=== PATIENT | male | born 1995 | race Hispanic/Latino ===

== ENCOUNTER 2018-07-19 17:24 | Emergency (ER) | payer SELFPAY ==
--- NOTE | 2018-07-19 18:44 | EDPHYS ---
Physician Documentation [facility] Name: Henrique Barton Age: 23 yrs Sex: Male : 1995 Arrival Date: 07/19/2018 Time: 17:27 Bed 19 Private MD: None, None ED Physician Marquis Monteiro HPI: 07/19 18:45 This 23 yrs old Male presents to ER via Ambulatory with complaints of Heart kdr burn, Chest Pain, Shortness Of Breath. 18:45 The patient has been having reflux for some time. Has been taking Nexium which controls kdr his symptoms. When he stops the Nexium, his symptoms return. He does drink heavily on the weekends and drinks energy drinks during the week. He also occasionally smokes and vapes. Onset: The symptoms/episode began/occurred at an unknown time. Severity of symptoms: At their worst the symptoms were moderate in the emergency department the symptoms have resolved. The patient has experienced similar episodes in the past, multiple times. The patient has not recently seen a physician. Historical: - Allergies: 17:30 No Known Allergies; tw2 - Home Meds: 17:30 None [Active]; tw2 - PMHx: 17:30 None; tw2 - PSHx: 17:30 None; tw2 - Immunization history:: Adult Immunizations. - Social history:: Smoking status: Patient uses tobacco products, 1 cigarette a week, chewing tobacco daily, julu vape. - Ebola Screening: : Patient denies travel to an Ebola-affected area in the 21 days before illness onset. ROS: 18:45 Constitutional: Negative for fever, chills, and weight loss, Eyes: Negative for injury, kdr pain, redness, and discharge, ENT: Negative for injury, pain, and discharge, Neck: Negative for injury, pain, and swelling, Cardiovascular: Negative for chest pain, palpitations, and edema, Respiratory: Negative for shortness of breath, cough, wheezing, and pleuritic chest pain, Back: Negative for injury and pain, : Negative for injury, bleeding, discharge, and swelling, MS/Extremity: Negative for injury and deformity, Skin: Negative for injury, rash, and discoloration, Neuro: Negative for headache, weakness, numbness, tingling, and seizure activity. Psych: Negative for depression, anxiety, suicide ideation, homicidal ideation, and hallucinations, Allergy/Immunology: Negative for hives, rash, and allergies, Endocrine: Negative for neck swelling, polydipsia, polyuria, polyphagia, and marked weight changes, Hematologic/Lymphatic: Negative for swollen nodes, abnormal bleeding, and unusual bruising. 18:45 Abdomen/GI: Positive for abdominal pain, Reflux and esophageal discomfort. Exam: 18:45 Constitutional: This is a well developed, well nourished patient who is awake, alert, kdr and in no acute distress. Head/Face: Normocephalic, atraumatic. Eyes: Pupils equal round and reactive to light, extra-ocular motions intact. Lids and lashes normal. Conjunctiva and sclera are non-icteric and not injected. Cornea within normal limits. Periorbital areas with no swelling, redness, or edema. Neck: Trachea midline, no thyromegaly or masses palpated, and no cervical lymphadenopathy. Supple, full range of motion without nuchal rigidity, or vertebral point tenderness. No Meningismus. Chest/axilla: Normal chest wall appearance and motion. Nontender with no deformity. No lesions are appreciated. Cardiovascular: Regular rate and rhythm with a normal S1 and S2. No gallops, murmurs, or rubs. Normal PMI, no JVD. No pulse deficits. Respiratory: Lungs have equal breath sounds bilaterally, clear to auscultation and percussion. No rales, rhonchi or wheezes noted. No increased work of breathing, no retractions or nasal flaring. Abdomen/GI: Soft, non-tender, with normal bowel sounds. No distension or tympany. No guarding or rebound. No evidence of tenderness throughout. Back: No spinal tenderness. No costovertebral tenderness. Full range of motion. Skin: Warm, dry with normal turgor. Normal color with no rashes, no lesions, and no evidence of cellulitis. MS/ Extremity: Pulses equal, no cyanosis. Neurovascular intact. Full, normal range of motion. Neuro: Awake and alert, GCS 15, oriented to person, place, time, and situation. Cranial nerves II-XII grossly intact. Motor strength 5/5 in all extremities. Sensory grossly intact. Cerebellar exam normal. Normal gait. Psych: Awake, alert, with orientation to person, place and time. Behavior, mood, and affect are within normal limits. Vital Signs: 17:29 BP 135 / 73; Pulse 79; Resp 17; Temp 98.5(O); Pulse Ox 100% on R/A; Weight 92.99 kg tw2 (R); Height 6 ft. 0 in. (182.88 cm); Pain 7/10; 17:29 Body Mass Index 27.80 (92.99 kg, 182.88 cm) tw2 MDM: 18:43 Patient medically screened. kdr 18:45 Data reviewed: vital signs, nurses notes. Counseling: I had a detailed discussion with kdr the patient and/or guardian regarding: the historical points, exam findings, and any diagnostic results supporting the discharge/admit diagnosis, the need for outpatient follow up, smoking cessation. ETOH abuse talk. Administered Medications: No medications were administered Disposition: 07/19/18 18:43 Discharged to Home. Impression: GI reflux, ETOH abuse. - Condition is Stable. - Discharge Instructions: Gastroesophageal Reflux Disease, Adult, [id number], Alcoholic Liver Disease, [id number]. - Medication Reconciliation Form, Thank You Letter form. - Follow up: Private Physician; When: 2 - 3 days; Reason: If symptoms return, Further diagnostic work-up, Recheck today's complaints, Continuance of care, Re-evaluation by your physician. - Problem is an ongoing problem. - Symptoms are resolved. Signatures: Maryuri Santamaria RN RN Marquis Monteiro MD MD kdr Mary Wright RN RN tw2 Corrections: (The following items were deleted from the chart) 19:04 18:43 07/19/2018 18:43 Discharged to Home. Impression: GI reflux, ETOH abuse. Condition sv is Stable. Forms are Medication Reconciliation Form, Thank You Letter, Antibiotic Education, Prescription Opioid Use. Follow up: Private Physician; When: 2 - 3 days; Reason: If symptoms return, Further diagnostic work-up, Recheck today's complaints, Continuance of care, Re-evaluation by your physician. Problem is an ongoing problem. Symptoms are resolved. kdr
--- NOTE | 2018-07-19 18:44 | ER ---
Nurse's Notes [facility] Name: Henrique Barton Age: 23 yrs Sex: Male : 1995 Arrival Date: 07/19/2018 Time: 17:27 Bed 19 Private MD: None, None Diagnosis: GI reflux, ETOH abuse Presentation: 07/19 17:27 Presenting complaint: Patient states: i am having like heartburn and chest pain, for tw2 months but it just got worse today, but i be eating a lot of bad stuff like spicy stuff and i just got worried. Transition of care: patient was not received from another setting of care. Onset of symptoms was July 19, 2018. Risk Assessment: Do you want to hurt yourself or someone else? Patient reports no desire to harm self or others. Initial Sepsis Screen: Does the patient meet any 2 criteria? No. Patient's initial sepsis screen is negative. Does the patient have a suspected source of infection? No. Patient's initial sepsis screen is negative. Care prior to arrival: None. 17:27 Method Of Arrival: Ambulatory tw2 17:27 Acuity: CHENTE 3 tw2 17:29 Presenting complaint: Patient states: and also my throat mariangel cadena a little bit. tw2 17:30 Presenting complaint: Patient states: i also drink pre work out drinks with caffiene in tw2 it and i drink those Bang energy drinks. Triage Assessment: 17:28 General: Appears in no apparent distress. Behavior is anxious. Pain: Complains of pain tw2 in epigastric area. Historical: - Allergies: 17:30 No Known Allergies; tw2 - Home Meds: 17:30 None [Active]; tw2 - PMHx: 17:30 None; tw2 - PSHx: 17:30 None; tw2 - Immunization history:: Adult Immunizations. - Social history:: Smoking status: Patient uses tobacco products, 1 cigarette a week, chewing tobacco daily, julu vape. - Ebola Screening: : Patient denies travel to an Ebola-affected area in the 21 days before illness onset. Screenin:31 Abuse screen: Denies threats or abuse. Nutritional screening: No deficits noted. tw2 Tuberculosis screening: No symptoms or risk factors identified. Fall Risk None identified. Assessment: 18:30 General: Appears in no apparent distress. comfortable, slender, well groomed, well sv developed, Behavior is calm, cooperative, appropriate for age. Pain: Complains of pain in mid-sternal area Pain currently is 7 out of 10 on a pain scale. Quality of pain is described as burning, Is intermittent, episodic, Aggravated by eating, not taking his Nexium daily. Neuro: Level of Consciousness is awake, alert, obeys commands, Oriented to person, place, time, situation, Moves all extremities. Full function Gait is steady. Respiratory: Respiratory effort is even, unlabored, Respiratory pattern is regular, symmetrical. Derm: Skin is pink, warm \T\ dry. 19:03 Reassessment: Patient appears in no apparent distress at this time. No changes from sv previously documented assessment. Patient and/or family updated on plan of care and expected duration. Pain level reassessed. Patient is alert, oriented x 3, equal unlabored respirations, skin warm/dry/pink. Vital Signs: 17:29 BP 135 / 73; Pulse 79; Resp 17; Temp 98.5(O); Pulse Ox 100% on R/A; Weight 92.99 kg tw2 (R); Height 6 ft. 0 in. (182.88 cm); Pain 7/10; 17:29 Body Mass Index 27.80 (92.99 kg, 182.88 cm) tw2 ED Course: 17:27 Patient arrived in ED. mr 17:28 None, None is Private Physician. mr 17:28 Triage completed. tw2 17:29 Arm band placed on. tw2 17:58 Marquis Monteiro MD is Attending Physician. kdr 17:59 EKG done, by fire control technician b. reviewed by Marquis Monteiro MD. sm3 18:30 Patient has correct armband on for positive identification. Placed in gown. Adult w/ sv patient. Door closed. Head of bed elevated. 18:41 Maryuri Santamaria, JESSICA is Primary Nurse. sv 18:46 No provider procedures requiring assistance completed. Patient did not have IV access sv during this emergency room visit. Administered Medications: No medications were administered Outcome: 18:43 Discharge ordered by . kdr 19:04 Discharged to home ambulatory, with family. sv 19:04 Condition: stable 19:04 Discharge instructions given to patient, Instructed on discharge instructions, follow up and referral plans. Demonstrated understanding of instructions, follow-up care. 19:04 Patient left the ED. sv Signatures: Maryuri Santamaria RN RN Marquis Arceo MD MD [facility] Mook Lissy mr Mray Wright RN RN tw Ruth Harvey [facility]
[2018-07-19 19:10] VITALS: BP 135/73; TEMP 98.5; O2SAT 100
--- NOTE | 2018-07-20 06:05 | EKG ---
Test Date: 2018-07-19 Test Time: 17:28:39 Package Crimper: JOSE MEASUREMENT RESULTS: Intervals: Rate: 80 CT: 164 QRSD: 100 QT: 370 QTc: 426 [place]: P: 24 CT: 164 QRS: 94 T: 43 INTERPRETIVE STATEMENTS: Normal sinus rhythm Rightward axis Borderline ECG No previous ECG available for comparison Electronically Signed On 07-20-18 06:04:51 CDT by Faraz English
== END 2018-07-19 19:04 | disposition home or self-care (01) ==
LOC: ER 17:24
DX: K21.9 Gastro-esophageal reflux disease without esophagitis (principal); F10.10 Alcohol abuse, uncomplicated; Z72.0 Tobacco use
CPT/HCPCS: 93005; 99283

== ENCOUNTER 2020-10-14 22:18 | Emergency (ER) | payer SELFPAY ==
[2020-10-15 02:11] LABS: Urine Blood Negative (Negative); Urine Glucose Negative (Negative); Urine Protein Negative (Negative); Urine Specific Gravity 1.025 (1.005-1.030)
[2020-10-15] MEDS ORDERED: MORPHINE 4 MG/ML SYR ONE (02:23)
[2020-10-15] MEDS ORDERED: ONDANSETRON 4 MG/2 ML VIAL ONE (02:23)
[2020-10-15] MEDS ORDERED: NA CHLORIDE 0.9% 1,000 ML ONE (02:23)
[2020-10-15 02:59] LABS: Absolute Lymphocytes (CBC) 2.4 K/uL (0.7-4.9); Basophils % 0.5 % (0-1.3); Hematocrit 41.8 % (39.6-49.0); Lymphocytes % 35.6 % (15.3-44.8); MPV 8.2 fL (7.6-11.3); RBC Red Blood Cell Count 4.77 M/uL (4.33-5.43)
[2020-10-15 03:08] LABS: ALT/SGPT 40 U/L (12-78); AST/SGOT 26 U/L (15-37); Albumin 4.1 g/dL (3.4-5.0); Alkaline Phosphatase 68 U/L (45-117); BUN Blood Urea Nitrogen 19 mg/dL (7-18); Bicarbonate 27 mmol/L (21-32); Bilirubin Direct < 0.1 mg/dL (0-0.2); Bilirubin Total 0.3 mg/dL (0.2-1.0); Glucose Level 108 mg/dL (74-106); Lipase 39 U/L (73-393); Potassium 3.6 mmol/L (3.5-5.1); Protein, Total 7.5 g/dL (6.4-8.2); Sodium Level 140 mmol/L (136-145)
--- NOTE | 2020-10-15 05:49 | ER ---
Nurse's Notes [facility] Name: Henrique Barton Age: 25 yrs Sex: Male : 1995 Arrival Date: 10/14/2020 Time: 22:24 Bed 14 Private MD: Diagnosis: Colitis;Cystitis Presentation: 10/14 22:48 Chief complaint: Patient states: he has been having left flank pain intermittently for bb a week and wanted to get checked. Coronavirus screen: At this time, the client does not indicate any symptoms associated with coronavirus-19. Ebola Screen: No symptoms or risks identified at this time. Initial Sepsis Screen: Does the patient meet any 2 criteria? No. Patient's initial sepsis screen is negative. Does the patient have a suspected source of infection? No. Patient's initial sepsis screen is negative. Risk Assessment: Do you want to hurt yourself or someone else? Patient reports no desire to harm self or others. Onset of symptoms was October 09, 2020. 22:48 Method Of Arrival: Ambulatory bb 22:48 Acuity: CHENTE 3 bb Triage Assessment: 22:50 General: Appears in no apparent distress. Behavior is calm, cooperative. Pain: bb Complains of pain in left flank area Pain currently is 7 out of 10 on a pain scale. Neuro: Level of Consciousness is awake, alert, obeys commands, Oriented to person, place, time, situation. Cardiovascular: Capillary refill < 3 seconds Patient's skin is warm and dry. Respiratory: Airway is patent Respiratory effort is even, unlabored, Respiratory pattern is regular. GI: Abdomen is non-distended. Derm: Skin is pink, warm \T\ dry. Musculoskeletal: Circulation, motion, and sensation intact. Historical: - Allergies: 22:50 No Known Allergies; bb - Home Meds: 22:50 None [Active]; bb - PMHx: 22:50 None; bb - PSHx: 22:50 None; bb - Immunization history:: Adult Immunizations up to date. - Social history:: Smoking status: Patient reports the use of cigarette tobacco products, denies chronic smoking, but will smoke occasionally, Patient uses alcohol, occasionally. Patient/guardian denies using street drugs. Screenin/07 01:25 Abuse screen: Denies threats or abuse. Denies injuries from another. Nutritional bs2 screening: No deficits noted. Tuberculosis screening: No symptoms or risk factors identified. Fall Risk None identified. Assessment: 01:25 General: Appears in no apparent distress. comfortable, well groomed, well developed, bs2 well nourished, Behavior is calm, cooperative, appropriate for age. Pain: Complains of pain in anterior aspect of left lateral abdomen and posterior aspect of left lateral abdomen Pain currently is 2 out of 10 on a pain scale. Pain began gradually, 2-3 days ago. Neuro: No deficits noted. Cardiovascular: No deficits noted. Respiratory: No deficits noted. GI: Bowel sounds present X 4 quads. Abd is soft and non tender X 4 quads. Reports. : No deficits noted. No signs and/or symptoms were reported regarding the genitourinary system. EENT: No deficits noted. Derm: No deficits noted. No signs and/or symptoms reported regarding the dermatologic system. Musculoskeletal: No deficits noted. No signs and/or symptoms reported regarding the musculoskeletal system. Vital Signs: 10/14 22:48 BP 131 / 95; Pulse 90; Resp 16 S; Temp 98.5(O); Pulse Ox 99% on R/A; Weight 100.7 kg bb (R); Height 5 ft. 11 in. (180.34 cm) (R); Pain 7/10; 10/15 02:12 BP 134 / 83; Pulse 89; Resp 16; Temp 98.6; Pulse Ox 100% ; Pain 2/10; bs2 03:30 BP 126 / 76; Pulse 88; Resp 16; Pulse Ox 100% ; bs2 04:30 BP 141 / 75; Pulse 80; Resp 16; Pulse Ox 100% ; bs2 10/14 22:48 Body Mass Index 30.96 (100.70 kg, 180.34 cm) bb ED Course: 10/14 22:24 Patient arrived in ED. ag3 22:50 Triage completed. bb 22:50 Arm band placed on Patient placed in waiting room, Patient notified of wait time. bb 10/15 01:25 Bulmaro Mendoza MD is Attending Physician. [facility] 01:25 Patient has correct armband on for positive identification. Bed in low position. Call bs2 light in reach. Side rails up X 1. Pulse ox on. NIBP on. Door closed. Noise minimized. Warm blanket given. Pillow given. 01:25 Inserted saline lock: 20 gauge in left antecubital area, using aseptic technique. bs2 02:09 Basic Metabolic Panel Sent. bs2 02:09 Hepatic Function Sent. bs2 02:09 Lipase Sent. bs2 02:09 CBC with Diff Sent. bs2 03:24 CT Stone Protocol In Process Unspecified. EDMS 05:59 No provider procedures requiring assistance completed. IV discontinued, intact, bs2 bleeding controlled, No redness/swelling at site. Administered Medications: 02:09 Drug: NS 0.9% 1000 ml Route: IV; Rate: 1000 ml; Site: left antecubital; bs2 05:55 Not Given (Patient Refused): Zofran (Ondansetron) 4 mg IVP once; over 2 minutes bs2 05:56 Not Given (Patient Refused): morphine 4 mg IVP once; RASS on ADMIN: Combtv4, Very bs2 Agttd3, Agttd2, Rstlss1, AlertClm0, Drwsy-1, Lt Sdtn-2, Mod Sdtn-3, Dp Sdtn-4, UnArsble-5 Outcome: 05:48 Discharge ordered by . anthony 05:59 Discharged to home ambulatory, with family. bs2 05:59 Condition: improved 05:59 Discharge instructions given to patient, Instructed on discharge instructions, follow up and referral plans. medication usage, Demonstrated understanding of instructions, follow-up care, medications, Prescriptions given X 3. 05:59 Patient left the ED. bs2 Signatures: Dispatcher [employer] EDMS Bria Moreira RN RN Emilie Black 3 Bulmaro Mendoza MD MD Leidy Doran bs2
--- NOTE | 2020-10-15 05:49 | EDPHYS ---
Physician Documentation [facility] Name: Henrique Barton Age: 25 yrs Sex: Male : 1995 Arrival Date: 10/14/2020 Time: 22:24 Bed 14 Private MD: ED Physician Bulmaro Mendoza HPI: 10/15 03:04 This 25 yrs old Male presents to ER via Ambulatory with complaints of mh7 Abdominal Pain. 03:04 The patient presents with abdominal pain in the left lower quadrant. Onset: The mh7 symptoms/episode began/occurred 1 week(s) ago. The symptoms do not radiate. Associated signs and symptoms: Pertinent negatives: nausea, vomiting, and diarrhea, nausea and vomiting, anorexia, blood in stools, chest pain, constipation, diarrhea, dysuria, fever, headache, hematuria, nausea, palpitations, shortness of breath, testicular pain, vomiting, vomiting blood. The symptoms are described as intermittent, vague, waxing/waning. Modifying factors: The symptoms are alleviated by nothing, the symptoms are aggravated by nothing. Severity of pain: At its worst the pain was moderate 3 day(s) ago, in the emergency department the pain has improved moderately. Historical: - Allergies: 10/14 22:50 No Known Allergies; bb - Home Meds: 22:50 None [Active]; bb - PMHx: 22:50 None; bb - PSHx: 22:50 None; bb - Immunization history:: Adult Immunizations up to date. - Social history:: Smoking status: Patient reports the use of cigarette tobacco products, denies chronic smoking, but will smoke occasionally, Patient uses alcohol, occasionally. Patient/guardian denies using street drugs. ROS: 10/15 03:04 Constitutional: Negative for fever, chills, and weight loss, Eyes: Negative for injury, mh7 pain, redness, and discharge, ENT: Negative for injury, pain, and discharge, Neck: Negative for injury, pain, and swelling, Cardiovascular: Negative for chest pain, palpitations, and edema, Respiratory: Negative for shortness of breath, cough, wheezing, and pleuritic chest pain, Back: Negative for injury and pain, : Negative for injury, bleeding, discharge, and swelling, MS/Extremity: Negative for injury and deformity, Skin: Negative for injury, rash, and discoloration, Neuro: Negative for headache, weakness, numbness, tingling, and seizure, Psych: Negative for depression, anxiety, suicide ideation, homicidal ideation, and hallucinations, Allergy/Immunology: Negative for hives, rash, and allergies, Endocrine: Negative for neck swelling, polydipsia, polyuria, polyphagia, and marked weight changes, Hematologic/Lymphatic: Negative for swollen nodes, abnormal bleeding, and unusual bruising. Exam: 03:04 Constitutional: This is a well developed, well nourished patient who is awake, alert, mh7 and in no acute distress. Head/Face: Normocephalic, atraumatic. Eyes: Pupils equal round and reactive to light, extra-ocular motions intact. Lids and lashes normal. Conjunctiva and sclera are non-icteric and not injected. Cornea within normal limits. Periorbital areas with no swelling, redness, or edema. Chest/axilla: Normal chest wall appearance and motion. Nontender with no deformity. No lesions are appreciated. Cardiovascular: Regular rate and rhythm with a normal S1 and S2. No gallops, murmurs, or rubs. Normal PMI, no JVD. No pulse deficits. Respiratory: Lungs have equal breath sounds bilaterally, clear to auscultation and percussion. No rales, rhonchi or wheezes noted. No increased work of breathing, no retractions or nasal flaring. 03:04 Back: No spinal tenderness. No costovertebral tenderness. Full range of motion. Skin: Warm, dry with normal turgor. Normal color with no rashes, no lesions, and no evidence of cellulitis. MS/ Extremity: Pulses equal, no cyanosis. Neurovascular intact. Full, normal range of motion. Neuro: Awake and alert, GCS 15, oriented to person, place, time, and situation. Cranial nerves II-XII grossly intact. Motor strength 5/5 in all extremities. Sensory grossly intact. Cerebellar exam normal. Normal gait. Psych: Awake, alert, with orientation to person, place and time. Behavior, mood, and affect are within normal limits. 03:04 Abdomen/GI: Inspection: abdomen appears normal, Bowel sounds: normal, in all quadrants, Palpation: mild abdominal tenderness, in the left lower quadrant, mass, is not appreciated, rebound tenderness, is not appreciated, voluntary guarding, is not appreciated, involuntary guarding, is not appreciated, no appreciated organomegaly, Rectal exam: the exam is deferred, because of patient request, Indicators: McBurney's point is not tender, Parker's sign is negative, Rovsing's sign is negative, Obturator sign is negative, Psoas sign is negative, Liver: no appreciated palpable abnormalities, Hernia: not appreciated. Vital Signs: 10/14 22:48 BP 131 / 95; Pulse 90; Resp 16 S; Temp 98.5(O); Pulse Ox 99% on R/A; Weight 100.7 kg bb (R); Height 5 ft. 11 in. (180.34 cm) (R); Pain 7/10; 10/15 02:12 BP 134 / 83; Pulse 89; Resp 16; Temp 98.6; Pulse Ox 100% ; Pain 2/10; bs2 03:30 BP 126 / 76; Pulse 88; Resp 16; Pulse Ox 100% ; bs2 04:30 BP 141 / 75; Pulse 80; Resp 16; Pulse Ox 100% ; bs2 10/14 22:48 Body Mass Index 30.96 (100.70 kg, 180.34 cm) bb MDM: 05:46 Differential diagnosis: bowel obstruction, diverticulitis, gastroesophageal reflux mh7 disease, non-specific abd pain, Ureterolithiasis, urinary tract infection. Data reviewed: vital signs, nurses notes, lab test result(s), CBC, electrolytes, urinalysis, radiologic studies, CT scan. Counseling: I had a detailed discussion with the patient and/or guardian regarding: the historical points, exam findings, and any diagnostic results supporting the discharge/admit diagnosis, the presence of at least one elevated blood pressure reading (>120/80) during this emergency department visit, lab results, radiology results, the need for outpatient follow up, to return to the emergency department if symptoms worsen or persist or if there are any questions or concerns that arise at home. Response to treatment: the patient's symptoms have resolved after treatment, the patient's blood pressure is in an acceptable range, mental status has returned to baseline, the patient no longer shows bradycardia, the patient is not short of breath, the patient is not tachycardic, the patient's pain is gone, the patient's temperature has normalized. 05:48 Patient medically screened. mh7 10/15 01:43 Order name: Basic Metabolic Panel [facility] 10/15 01:43 Order name: CBC with Diff; Complete Time: 05:31 [facility] 10/15 01:43 Order name: Hepatic Function [facility] 10/15 01:43 Order name: Lipase [facility] 10/15 01:43 Order name: Basic Metabolic Panel; Complete Time: 05:31 [facility] 10/15 01:43 Order name: Liver (Hepatic) Function; Complete Time: 05:31 [facility] 10/15 01:43 Order name: IV Saline Lock; Complete Time: 02:09 [facility] 10/15 01:43 Order name: Labs collected and sent; Complete Time: 02:09 [facility] 10/15 01:43 Order name: CT Stone Protocol [facility] 10/15 01:43 Order name: Lipase; Complete Time: 05:31 [facility] 10/15 02:10 Order name: Urine Dipstick-Ancillary; Complete Time: 05:31 [facility] 10/15 01:43 Order name: Urine Dipstick-Ancillary (obtain specimen); Complete Time: 02:05 [facility] 10/15 02:15 Order name: Labs - recollect needed: all labs needed; Complete Time: 05:14 mw2 Administered Medications: 02:09 Drug: NS 0.9% 1000 ml Route: IV; Rate: 1000 ml; Site: left antecubital; bs2 05:55 Not Given (Patient Refused): Zofran (Ondansetron) 4 mg IVP once; over 2 minutes bs2 05:56 Not Given (Patient Refused): morphine 4 mg IVP once; RASS on ADMIN: Combtv4, Very bs2 Agttd3, Agttd2, Rstlss1, AlertClm0, Drwsy-1, Lt Sdtn-2, Mod Sdtn-3, Dp Sdtn-4, UnArsble-5 Disposition Summary: 10/15/20 05:48 Discharge Ordered Location: Home [facility] Problem: new [facility] Symptoms: have improved [facility] Condition: Stable [facility] Diagnosis - Colitis [facility] - Cystitis [facility] Followup: [facility] - With: Private Physician - When: 1 - 2 days - Reason: Worsening of condition, Recheck today's complaints, Continuance of care, Re-evaluation by your physician Discharge Instructions: - Discharge Summary Sheet mh7 - Interstitial Cystitis mh7 - Colitis mh7 Forms: - Medication Reconciliation Form 7 - Thank You Letter mh7 - Antibiotic Education 7 - Prescription Opioid Use 7 - Work release form mw2 Prescriptions: - Flagyl 500 mg Oral Tablet - take 1 tablet by ORAL route every 8 hours for 7 days; 21 tablet; Refills: 0, [facility] Product Selection Permitted - Ibuprofen 800 mg Oral Tablet - take 1 tablet by ORAL route every 8 hours As needed take with food; 15 tablet; mh7 Refills: 0, Product Selection Permitted - Cipro 500 mg Oral Tablet - take 1 tablet by ORAL route every 12 hours for 7 days; 14 tablet; Refills: 0, [facility] Product Selection Permitted Signatures: Dispatcher [employer] Bria Sanon RN RN bb [place], [employer] 2 Bulmaro Mendoza MD MD 7 Leidy Sepulveda 2
[2020-10-15 06:08] VITALS: TEMP 98.6; O2SAT 100
[2020-10-15 06:13] VITALS: BP 141/75
--- NOTE | 2020-10-15 11:17 | RAD REPORT ---
EXAM DESCRIPTION: CT - Stone Protocol - 10/15/2020 6:31 am CLINICAL HISTORY: Abd pain;Flank pain COMPARISON: None Available. TECHNIQUE: CT of the abdomen and pelvis without IV contrast. Evaluation of the solid organs and vasc ulature is suboptimal due to lack of IV contrast. This exam was performed according to our department al dose-optimization program, which includes automated exposure control, adjustment of the mA and/or kV according to patient size and/or use of iterative reconstruction technique. FINDINGS: Lung Bases: The visualized lung bases are clear. Bones: No destructive bone lesions identified. Abdomen: Liver: The liver has normal size and density. Gallbladder: No calcified gallstones. Spleen, Pancreas, and Adrenal Glands: The spleen, pancreas, and adrenal glands are unremarkable. Kidneys: The kidneys have normal size without evidence of hydronephrosis. No obstructing ureteral zach culi. Vasculature: The aorta and IVC have normal caliber and position. Stomach: The stomach and duodenum have normal course. Other: No free intraperitoneal air. No free fluid or lymphadenopathy. Small fat-containing umbili zach hernia. Pelvis: Bladder: Wall thickening of the urinary bladder. Bowel: No dilated loops of large or small bowel. Mild wall thickening of the sigmoid colon. Appendix: Normal appendix. Pelvis: Prostate is not enlarged. IMPRESSION: 1. Wall thickening of the urinary bladder. This could be seen with cystitis. 2. Mild wall thickening of the sigmoid colon. Findings could be seen with nonspecific colitis. Electronically signed by: Ramiro Guerrero 10/15/2020 3:51 AM CDT Due to temporary technical issues with the PACS/Fluency reporting system, reports are being signed by the in house radiologist without review as a courtesy to ensure prompt reporting. The interpreting r adiologist is fully responsible for the content of the report.
== END 2020-10-15 05:59 | disposition home or self-care (01) ==
LOC: ER 22:18
DX: K52.9 Noninfective gastroenteritis and colitis, unspecified (principal); N30.90 Cystitis, unspecified without hematuria; F17.210 Nicotine dependence, cigarettes, uncomplicated
CPT/HCPCS: 36415; 74176; 76377; 80048; 80076; 81003; 83690; 85025; 99284; J2405; J7030